=== PATIENT | male | born 1995 | race Caucasian/White ===

== ENCOUNTER 2017-03-28 13:56 | Emergency (ER) | payer OTHER ==
[2017-03-28 14:00] VITALS: TEMP 98.2; O2SAT 96
--- NOTE | 2017-03-28 14:06 | EDPHY ---
H & P Stated Complaint: infection r hand Time Seen by Provider: 03/28/17 14:05 HPI/ROS: HPI: This is a 22-year-old male who presents with Chief Complaint: Right hand infection Location: Right hand 3rd knuckle Quality: Redness Duration: 3-5 days Signs and Symptoms: No bleeding, no radiation, no numbness, no weakness, no tingling, no incontinence, no decreased range of motion, no swelling, no pain, + erythema, + drainage Timing: Worsening Severity: Mild Context: Patient is a student at [employer], right-hand dominant, presents with boxing approximately 4 days ago; used borrowed gloves and 1-2 days later noted a small draining sore over his right 3rd. He has squeezed it and drained scant amount drainage x 2 days. Today, noticed red streaking from his hand up into his axilla. Denies fever/warmth/pain/paresthesias/decreased range of motion. no hx MRSA infection. Unsure of tetanus status. Modifying Factors: None Comment: ROS: see HPI Constitutional: No fever, no chills, no weight loss Eyes: No blurred vision Respiratory: No shortness of breath, no cough Cardiovascular: No chest pain Gastrointestinal: No nausea, no vomiting no diarrhea Genitourinary: No dysuria Extremities: No myalgias Neurologic: No weakness, no numbness Skin: No rashes Hematologic: No bruising, no bleeding MEDICAL/SURGICAL/SOCIAL HISTORY: Medical history: Generally healthy. Does not take any regular medications. Surgical history: Denies Social history: Student. CONSTITUTIONAL: Polite and cooperative, young adult white male, awake and alert , no obvious distress HEENT: Atraumatic and normocephalic. NECK: supple, no midline tenderness, flexion 45 degrees, extension 45 degrees, right and left lateral flexion 45 degrees. No meningismus. Cardiovascular: Normal S1/S2, regular rate, regular rhythm, without murmur rub or gallop. PULMONARY/CHEST: Symmetrical and nontender. no crepitus. Clear to auscultation bilaterally. Good air movement. No accessory muscle usage. ABDOMEN: Soft, nondistended, nontender, no ecchymosis. PELVIC: no pain with rocking; bilateral hips flexion 125 degrees, extension 30 degrees, with no pain internal rotation and no pain external rotation. BACK: No midline tenderness, no paraspinous spasm, deep tendon reflexes 2/2, no pain with straight leg raise EXTREMITIES: 2/2 radial pulses, strength 5/5, right WRIST: Extension to 70, flexion to 80, radial deviation to 20 degree, ulnar deviation to 30, no scaphoid tenderness, no tenderness over ulnar styloid, no tenderness over radial styloid. Right 3rd knuckle shows mild erythematous area with scant amount purulent discharge with expression; no fluctuant. Light pink streaking bleeding from the area up until the axilla. DIP/PIP/MCP flexion/extension intact with good light touch sensation. no deformities, no clubbing, no cyanosis or edema. NEUROLOGICAL: no focal neuro deficits. GCS 15. Light touch sensation intact. SKIN: Warm and dry, no erythema. no rash. Good capillary refill. Source: Patient Exam Limitations: No limitations - Personal History Current Tetanus/Diphtheria Vaccine: Unsure - Medical/Surgical History Hx Asthma: No Hx Chronic Respiratory Disease: No Hx Diabetes: No Hx Cardiac Disease: No Hx Renal Disease: No Hx Cirrhosis: No Hx Alcoholism: No Hx HIV/AIDS: No Hx Splenectomy or Spleen Trauma: No Other PMH: denies - Social History Smoking Status: Never smoked Constitutional: Initial Vital Signs Temperature (C) 36.8 C 03/28/17 13:59 Heart Rate 60 03/28/17 13:59 Respiratory Rate 17 03/28/17 13:59 Blood Pressure 126/55 H 03/28/17 13:59 O2 Sat (%) 96 03/28/17 13:59 O2 Delivery Mode Room Air Allergies/Adverse Reactions: No Known Allergies Allergy (Unverified 03/28/17 13:58) Home Medications: Medication Instructions Recorded Cephalexin [Keflex (*)] 500 mg PO QID #28 cap 03/28/17 Sulfamethox/Tmp 800/160 mg 1 tab PO BID #14 tab 03/28/17 [Bactrim Ds] Medical Decision Making - Diagnostics Imaging Results: Imaging Impressions Hand X-Ray 03/28/17 14:09 Impression: Normal. ED Course/Re-evaluation: Right hand x-ray, wound care ordered No signs of neurovascular compromise/tenting of skin/compartment syndrome/ extremities and joints examined above and below area of concern and are neurovascularly intact. Tetanus booster given. No fluctuance to I&D. Area cleaned copiously with mild soap and water. X-ray my read shows no fracture/dislocation Given Keflex and Bactrim. Placed in volar splint to decrease immobilization for the next 48-72 hours. Return to the emergency room in 2-3 days for wound check. This patient was seen under the supervision of my secondary supervising physician. I evaluated care for this patient independently. Differential Diagnosis: Differential diagnosis includes but is not limited to cellulitis, abscess, tenosynovitis, phlebitis. - Data Points Medications Given: Discontinued Medications Cephalexin HCl (Keflex) 500 mg PO EDNOW ONE PRN Reason: Protocol Stop: 03/28/17 14:10 Last Admin: 03/28/17 14:35 Dose: 500 mg Diphtheria/Tetanus/Acell Pertussis (Boostrix) 0.5 ml IM .ONCE ONE Stop: 03/28/17 14:15 Last Admin: 03/28/17 14:50 Dose: 0.5 ml Trimethoprim/Sulfamethoxazole (Bactrim Ds) 1 ea PO EDNOW ONE PRN Reason: Protocol Stop: 03/28/17 14:10 Last Admin: 03/28/17 14:34 Dose: 1 ea Departure - Departure Disposition: Home, Routine, Self-Care Clinical Impression: Cellulitis of right hand excluding fingers and thumb, Phlebitis Condition: Good Instructions: Cellulitis (ED), Phlebitis (ED) Additional Instructions: Keep the splint dry and in place for 2-3 days After 48 hours, you may remove the splint; wash the site daily with mild soap and water; then pat dry. Take Tylenol 650 mg every 4 hours and/or Ibuprofen 600 mg every 8 hours with food as needed for pain. Take Keflex and Bactrim as directed until complete. Follow-up in the emergency room for wound check in 2-3 days if symptoms have not improved. Referrals: [facility],. [Clinic] - As per Instructions Prescriptions: Cephalexin [Keflex (*)] 500 mg PO QID #28 cap Sulfamethox/Tmp 800/160 mg [Bactrim Ds] 1 tab PO BID #14 tab
[2017-03-28] MEDS ORDERED: SULFAMETHOX/TMP 800/160 MG 1 TAB PO ONE (14:09)
[2017-03-28] MEDS ORDERED: CEPHALEXIN 500 MG CAP PO ONE (14:09)
[2017-03-28] MEDS ORDERED: TDAP ADULT 0.5 ML INJ (BOOSTRIX) IM ONE (14:14)
[2017-03-28 15:36] VITALS: BP 119/69; PULSE 63; RESP 12
== END 2017-03-28 15:34 | disposition home or self-care (01) ==
DX: L03.113 Cellulitis of right upper limb (principal); I80.8 Phlebitis and thrombophlebitis of other sites; Z23 Encounter for immunization

== ENCOUNTER 2017-06-03 13:58 | Emergency (ER) | payer OTHER ==
[2017-06-03 14:04] VITALS: BP 108/53
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
== END 2017-06-03 14:33 | disposition home or self-care (01) ==
DX: S60.426A Blister (nonthermal) of right little finger, initial encounter (principal); L08.9 Local infection of the skin and subcutaneous tissue, unspecified; M20.011 Mallet finger of right finger(s); Y09 Assault by unspecified means
CPT/HCPCS: L3925